=== PATIENT | male | born 1965 | race Caucasian/White ===

== ENCOUNTER 2022-01-07 13:40 | Emergency (ER) | payer OTHER, SELFPAY ==
--- NOTE | 2022-01-07 08:03 | ECG_ITS ---
Test Reason : ANAPHALAXIS Blood Pressure : / mmHG Vent. Rate : 095 BPM Atrial Rate : 095 BPM P-R Int : 158 ms QRS Dur : 082 ms QT Int : 364 ms P-R-T Axes : 013 -15 028 degrees QTc Int : 457 ms Sinus rhythm with marked sinus arrhythmia Minimal voltage criteria for LVH, may be normal variant ( R in aVL ) Inferior infarct (cited on or before 14-JUL-2011) Possible Anterior infarct , age undetermined Abnormal ECG When compared with ECG of 14-JUL-2011 13:54, Vent. rate has increased BY 32 BPM Referred By: Arlene Yarbrough Electronically Signed By:ANAT BROWN
[2022-01-07 13:44] VITALS: BP 131/89; PULSE 105; RESP 18; TEMP 36.5; O2SAT 96; BMI 35.5
--- NOTE | 2022-01-07 13:53 | ED.ALLEREA ---
HPI - Allergic Reaction General Chief complaint: Allergic Reaction Stated complaint: epi pen allergic reaction chest pressure tightnes Time Seen by Provider: 01/07/22 13:53 Source: patient Mode of arrival: ambulatory Limitations: no limitations History of Present Illness complaint: allergic reaction (heart racing after taking epi pen 1230pm) Onset (ago): hour(s) (1230pm today ) Exposure: medication (has allergy to PCN given amoxicillin for dental procedure tomorrow ) Symptoms: rash, itching, lip swelling, difficulty breathing and other (tingling in his body, felt hot and itchy all over) Severity: moderate Treatment prior to arrival: epinephrine (took his dose at home. ) Previous Allergic Reaction History: anaphylaxis (bee stings) Related Data Previous Rx's Medication Instructions Recorded doxycycline hyclate 100 mg tablet 100 mg PO BID 10 Days #20 tab 01/07/22 epinephrine 0.3 mg/0.3 mL 0.3 mg (0.3 mL) IM Q10M PRN #2 ea 01/07/22 injection, auto-injector Allergies Allergy/AdvReac Type Severity Reaction Status Date / Time bee pollen [BEE STINGS] Allergy Severe ANAPHYLAXIS Verified 01/07/22 13:43 amoxicillin Allergy Intermediate Anaphylaxis Verified 01/07/22 13:44 ciprofloxacin [From CIPRO] Allergy Intermediate ANAPHYLAXIS Verified 01/07/22 13:43 From CIPRO Allergy Intermediate ANAPHYLAXIS Uncoded 01/07/22 13:43 Review of Systems Review of Systems: Constitutional : No Fever, No Chills ENT/Mouth : positive oral swelling, No Hoarseness, No Swallowing Difficulty Eyes: No Eye Pain, No Swelling, No Redness Cardiovascular : No Chest Pain, No SOB Respiratory : No Cough, No Sputum, No Wheezing, No Smoke Exposure, No Dyspnea Gastrointestinal : No Nausea, No Vomiting, No Diarrhea, No abdominal Pain Genitourinary : No Dysuria, No Urinary Frequency, No Hematuria Musculoskeletal : No joint pain, No Myalgias, No Joint Swelling Skin : No Skin Lesions, positive rash, pos itching Neuro : No Weakness, No Numbness, No Headache Psych : No Anxiety/Panic, No Depression Heme/Lymph: No Bruising, No Lymphadenopathy Endocrine : No Polyuria, No Polydipsia All other systems reviewed and are negative PMFSH Past Medical History Attestation statement: The following information was validated with the patient. Medical History Anaphylaxis Social History Social History (Updated 01/07/22 @ 14:27 by Arlene Yarbrough DO) Patient Tobacco Use Status: Never used Tobacco Advance Directives: No Advance Directives Information Provided: No Physical Exam ED Vital Signs: Vital Signs - 24 hr 01/07/22 13:44 01/07/22 15:17 Temperature 97.7 F 98 F Pulse Rate 105 H 80 Respiratory Rate 18 16 Blood Pressure 131/89 131/95 H Pulse Oximetry 96 95 BMI result Body Mass Index 35.5 Appearance: Alert. Oriented X3. No acute distress. Eyes: Pupils equal, round and reactive to light. ENT: Pharynx normal. lips no longer swollen, clear oropharynx Neck: Normal inspection. Neck supple. CVS: Normal heart rate and rhythm. Pulses normal. Respiratory: No respiratory distress. Breath sounds normal. Abdomen: Soft and non-tender. Skin: Skin warm and dry. Normal skin color. Normal skin turgor. Extremities: No lower extremity edema. No calf ttp excoriated areas on shins Neuro: Oriented X 3. No motor deficit. No sensory deficit.f Course Course Course Narrative: feels better, stable for DC at this time MDM - Allergic Reaction MDM Narrative Medical decision making narrative: 56 yo male with hx of anaphylaxis carries epi pen he is allergic to PCN but took amoxicillin today developed a rash and felt his whole body tingling - he felt short of breath and his lips swelled. He took his epi pen at 1230pm but felt his hieart was racing and he still didn't feel 100%. He felt like he was still having a reaction or a rebound. At this time no oral swelling - will given benadryl, pepcid and prednisone. Start on doxycycline and stop amoxicillin for his procedure ECG Data Attestation: I personally reviewed and interpreted this ECG as follows: ECG interpretation date: 01/07/22 ECG interpretation time: 13:53 Interpretation: Rate: 95 Rhythm: NSR [employer]: left, LVH Normal P waves. Normal ROLANDA. Normal QRS complex. Poor R wave progression ST T wave : non-specific no LUISANA qTC: normal prior studies: no acute ischemia The study has been interpreted contemporaneously by me. Discharge Plan Discharge Clinical Impression: Anaphylaxis Qualifiers: Encounter type: initial encounter Qualified Code(s): T78.2XXA - Anaphylactic shock, unspecified, initial encounter Patient Disposition: Home, Self-Care Instructions: Anaphylaxis (ED) Additional Instructions: return to ED for any worsening symptoms or concerns YOU CANNOT TAKE AMOXICILLIN SWITCH TO DOXYCYCLINE - [place] HAPPEN EASILY Prescriptions: New doxycycline hyclate 100 mg tablet 100 mg PO BID 10 Days Qty: 20 0RF epinephrine 0.3 mg/0.3 mL auto-injector 0.3 mg IM Q10M PRN (Reason: anaphylaxis) Qty: 2 0RF Rx Instructions: for 2 doses
[2022-01-07] MEDS: predniSONE 20 MG TABLET 60 MG PO (14:22)
[2022-01-07] MEDS: Famotidine 20 MG TABLET PO (14:23)
[2022-01-07] MEDS: diphenhydrAMINE HCL 25 MG TABLET PO (14:23)
[2022-01-07 15:17] VITALS: BP 131/95; PULSE 80; RESP 16; TEMP 36.6; O2SAT 95
== END 2022-01-07 15:45 | disposition home or self-care (01) ==
PROVIDERS: Emergency Provider Emergency Medicine; PCP Internal Medicine
DX: R00.2 Palpitations (principal); K13.0 Diseases of lips; T44.5X5A Adverse effect of predominantly beta-adrenoreceptor agonists, initial encounter; Y92.9 Unspecified place or not applicable; X58.XXXA Exposure to other specified factors, initial encounter; Z79.899 Other long term (current) drug therapy
CPT/HCPCS: 93005; 99283; 99284; Q0163